=== PATIENT | male | born 1965 | race American Indian/Alaskan Native ===

== ENCOUNTER 2018-10-16 13:59 | Emergency (ER) | payer OTHER ==
[2018-10-16] MEDS ORDERED: Sodium Chloride 0.9% 1,000 ML IV ONE ×2 (14:14→15:41)
[2018-10-16] MEDS ORDERED: Ondansetron 4 MG/2 ML SDV IVPUSH ONE (14:14)
--- NOTE | 2018-10-16 14:16 | EDM.PDOC ---
ED HPI GENERAL MEDICAL PROBLEM - General Chief Complaint: Neuro Symptoms/Deficits Stated Complaint: VOMITING NO FEELING IN RT ARM Time Seen by Provider: 10/16/18 14:15 Source of Information: Reports: Patient - History of Present Illness INITIAL COMMENTS - FREE TEXT/NARRATIVE: HISTORY AND PHYSICAL: History of present illness: Patient presents with abdominal pain 4 out of 10 diffuse pain and vomiting since 3 AM to numerous to count vomiting no fever chills sweats no chest pain shortness breath headache dizziness palpitation no bowel or urine symptoms Patient has been having carpal tunnel symptoms on the right over the last 5-6 months is a secondary complaint [] Review of systems: As per history of present illness and below otherwise all systems reviewed and negative. Past medical history: As per history of present illness and as reviewed below otherwise noncontributory. Surgical history: As per history of present illness and as reviewed below otherwise noncontributory. Social history: No reported history of drug or alcohol abuse. Family history: As per history of present illness and as reviewed below otherwise noncontributory. Physical exam: HEENT: Atraumatic, normocephalic, pupils reactive, negative for conjunctival pallor or scleral icterus, mucous membranes moist, throat clear, neck supple, nontender, trachea midline. Lungs: Clear to auscultation, breath sounds equal bilaterally, chest nontender. Heart: S1S2, regular, negative for clicks, rubs, or JVD. Abdomen: Soft, nondistended, nontender. Negative for masses or hepatosplenomegaly. Negative for costovertebral tenderness. Pelvis: Stable nontender. Genitourinary: Deferred. Rectal: Deferred. Extremities: Atraumatic, negative for cords or calf pain. Neurovascular unremarkable. Neuro: Awake, alert, oriented. Cranial nerves II through XII unremarkable. Cerebellum unremarkable. Motor and sensory unremarkable throughout. Exam nonfocal. Diagnostics: [CBC CMP UA troponin lipase KG ] Therapeutics: [Liter normal saline bolus Zofran Vasotec 1.25 mg IV Proton X 80 mg IV Labetalol 10 mg IV Splint right wrist Zofran No. 30 no refill Lisinopril 20 mg by mouth daily #30 no refill ] Impression: Gastroenteritis Technique no stomach wall-endoscopy suggested/recommended HTN-uncontrolled/medication noncompliant Carpal tunnel syndrome symptoms on the urinate Definitive disposition and diagnosis as appropriate pending reevaluation and review of above. - Related Data Allergies Allergy/AdvReac Type Severity Reaction Status Date / Time aspirin Allergy Cannot Verified 10/16/18 14:12 Remember Home Meds: Home Meds . [No Known Home Meds] 10/16/18 [History] ED ROS GENERAL - Review of Systems Review Of Systems: See Below ED EXAM, GENERAL - Physical Exam Exam: See Below Course - Vital Signs Last Recorded V/S: Last Vital Signs Temp 97.9 F 10/16/18 14:07 Pulse 75 10/16/18 16:26 Resp 18 10/16/18 16:26 BP 181/109 H 10/16/18 16:26 Pulse Ox 97 10/16/18 16:26 - Orders/Labs/Meds Orders: Active Orders 24 hr Category Date Time Status EKG Documentation Completion [RC] STAT Care 10/16/18 14:15 Active UA RFX EZEKIEL AND CULT IF INDIC [URIN] Stat Lab 10/16/18 14:14 Ordered Sodium Chloride 0.9% [Normal Saline] 1,000 ml Med 10/16/18 15:41 Active IV STAT Medication Orders Sodium Chloride (Normal Saline) 1,000 mls @ 999 mls/hr IV STAT ONE Stop: 10/16/18 16:41 Last Admin: 10/16/18 15:44 Dose: 999 mls/hr Labs: Laboratory Tests 10/16/18 10/16/18 10/16/18 Range/Units 14:00 14:00 14:00 WBC 12.50 H (4.0-11.0) K/uL RBC 4.97 (4.50-5.90) M/uL Hgb 16.3 (13.0-17.0) g/dL Hct 46.5 (38.0-50.0) % MCV 93.6 (80.0-98.0) fL MCH 32.8 H (27.0-32.0) pg MCHC 35.1 (31.0-37.0) g/dL RDW Std Deviation 45.3 (28.0-62.0) fl RDW Coeff of Jovita 13 (11.0-15.0) % Plt Count 546 H (150-400) K/uL MPV 8.90 (7.40-12.00) fL Neut % (Auto) 83.8 H (48.0-80.0) % Lymph % (Auto) 11.5 L (16.0-40.0) % [place] % (Auto) 4.6 (0.0-15.0) % Eos % (Auto) 0.0 (0.0-7.0) % Baso % (Auto) 0.1 (0.0-1.5) % Neut # (Auto) 10.5 H (1.4-5.7) K/uL Lymph # (Auto) 1.4 (0.6-2.4) K/uL [place] # (Auto) 0.6 (0.0-0.8) K/uL Eos # (Auto) 0.0 (0.0-0.7) K/uL Baso # (Auto) 0.0 (0.0-0.1) K/uL Nucleated RBC % 0.0 /100WBC Nucleated RBCs # 0 K/uL Sodium 135 L (136-148) mmol/L Potassium 3.5 (3.5-5.1) mmol/L Chloride 99 (98-107) mmol/L Carbon Dioxide 26.5 (21.0-32.0) mmol/L BUN 10 (7.0-18.0) mg/dL Creatinine 0.9 (0.8-1.3) mg/dL Est Cr Clr Drug Dosing 106.58 mL/min Estimated GFR (MDRD) > 60.0 ml/min Glucose 140 H (74-106) mg/dL Calcium 9.7 (8.5-10.1) mg/dL Total Bilirubin 0.6 (0.2-1.0) mg/dL AST 20 (15-37) IU/L ALT 31 (14-63) IU/L Alkaline Phosphatase 111 (46-116) U/L Troponin I < 0.050 (0.000-0.056) ng/mL Total Protein 8.6 H (6.4-8.2) g/dL Albumin 4.4 (3.4-5.0) g/dL Globulin 4.2 H (2.6-4.0) g/dL Albumin/Globulin Ratio 1.1 (0.9-1.6) Lipase 149 (73-393) U/L Meds: Medications Generic Name Dose Route Start Last Admin Trade Name Freq PRN Reason Stop Dose Admin Sodium Chloride 1,000 mls @ 999 mls/hr 10/16/18 15:41 10/16/18 15:44 Normal Saline IV 10/16/18 16:41 999 mls/hr STAT ONE Administration Discontinued Medications Generic Name Dose Route Start Last Admin Trade Name Freq PRN Reason Stop Dose Admin Amlodipine Besylate 5 mg 10/16/18 16:34 Norvasc PO 10/16/18 16:35 ONETIME ONE Enalaprilat 1.25 mg 10/16/18 15:07 10/16/18 15:40 Vasotec Iv IVPUSH 10/16/18 15:08 Not Given ONETIME ONE Enalaprilat 1.25 mg 10/16/18 15:35 10/16/18 15:35 Vasotec Iv IVPUSH 10/16/18 15:36 Not Given ONETIME ONE Enalaprilat 1.25 mg 10/16/18 15:36 10/16/18 15:37 Vasotec Iv IVPUSH 10/16/18 15:37 Not Given ONETIME ONE Enalaprilat 1.25 mg 10/16/18 15:37 10/16/18 15:39 Vasotec Iv IVPUSH 10/16/18 15:38 1.25 mg ONETIME ONE Administration Sodium Chloride 1,000 mls @ 999 mls/hr 10/16/18 14:14 10/16/18 14:24 Normal Saline IV 10/16/18 15:14 999 mls/hr STAT ONE Administration Iopamidol 100 ml 10/16/18 15:32 10/16/18 15:33 Isovue Multipack-370 (76%) IVPUSH 10/16/18 15:33 100 ml ONETIME STA Administration Labetalol HCl 10 mg 10/16/18 16:13 10/16/18 16:24 Normodyne IVPUSH 10/16/18 16:14 10 mg NOW ONE Administration Protocol Ondansetron HCl 8 mg 10/16/18 14:14 10/16/18 14:24 Zofran IVPUSH 10/16/18 14:15 8 mg ONETIME ONE Administration Pantoprazole Sodium 80 mg 10/16/18 15:00 10/16/18 15:43 Protonix Iv IVPUSH 02/24/19 15:01 80 mg .BOLUS ONE Administration Departure - Departure Time of Disposition: 16:36 Disposition: Home, Self-Care 01 Condition: Good Clinical Impression: Gastroenteritis, HTN (hypertension), Carpal tunnel syndrome of right wrist - Discharge Information Referrals: Cabrera Moran [Primary Care Provider] - Forms: ED Department Discharge Additional Instructions: Medication as prescribed Return if symptoms persist or worsen or new concerning symptoms develop Clear liquid diet 12-24 hours advance diet slowly as tolerated All up with primary care concerning hypertension and carpal tunnel syndrome Follow-up with general surgery concerning thickening of your stomach wall may further be evaluated with upper endoscopy All phone numbers below to schedule appropriate follow-up [facility] - Primary Care [address] [place] [id number] [facility] - General Surgery [facility] [address] [place] [address], [address] [place] [address] The following information is given to patients seen in the emergency department who are being discharged to home. This information is to outline your options for follow-up care. We provide all patients seen in our emergency department with a follow-up referral. The need for follow-up, as well as the timing and circumstances, are variable depending upon the specifics of your emergency department visit. If you don't have a primary care physician on staff, we will provide you with a referral. We always advise you to contact your personal physician following an emergency department visit to inform them of the circumstance of the visit and for follow-up with them and/or the need for any referrals to a consulting specialist. The emergency department will also refer you to a specialist when appropriate. This referral assures that you have the opportunity for follow-up care with a specialist. All of these measure are taken in an effort to provide you with optimal care, which includes your follow-up. Under all circumstances we always encourage you to contact your private physician who remains a resource for coordinating your care. When calling for follow-up care, please make the office aware that this follow-up is from your recent emergency room visit. If for any reason you are refused follow-up, please contact the [facility] emergency department at and asked to speak to the emergency department charge nurse. - My Orders Last 24 Hours: My Active Orders 10/16/18 14:14 UA RFX EZEKIEL AND CULT IF INDIC [URIN] Stat 10/16/18 14:15 EKG Documentation Completion [RC] STAT 10/16/18 15:41 Sodium Chloride 0.9% [Normal Saline] 1,000 ml IV STAT - Assessment/Plan Last 24 Hours: My Active Orders 10/16/18 14:14 UA RFX EZEKIEL AND CULT IF INDIC [URIN] Stat 10/16/18 14:15 EKG Documentation Completion [RC] STAT 10/16/18 15:41 Sodium Chloride 0.9% [Normal Saline] 1,000 ml IV STAT
[2018-10-16 14:48] LABS: CHLORIDE,CL 99 mmol/L (98-107); SODIUM,NA 135 mmol/L (136-148)
--- NOTE | 2018-10-16 14:56 | CT ---
Indication: Pain. Right hand numbness for 4-5 months with nausea and vomiting starting last night. Technique: Multiple contiguous axial images were obtained from the skullbase to the vertex without intravenous contrast enhancement. Please note that all CT scans at this facility use dose modulation, iterative reconstruction, and/or weight-based dosing when appropriate to reduce radiation dose to as low as reasonably achievable. Comparison: None Findings: The ventricles are symmetric and normal in size and morphology. The basal cisterns are widely patent. No intra-axial or extra-axial hemorrhage is identified. No mass, mass effect or midline shift is seen. The bony calvarium is intact. The visualized paranasal sinuses and mastoid air cells are clear. Impression: No acute intracranial process. Consideration should be given to non emergent MRI of the brain given the patient`s clinical symptoms. Please note that all CT scans at this facility use dose modulation, iterative reconstruction, and/or weight-based dosing when appropriate to reduce radiation dose to as low as reasonably achievable. Dictated by Analia Colon MD @ Oct 16 2018 2:53PM Signed by Dr. Analia Colon @ Oct 16 2018 2:55PM
[2018-10-16] MEDS ORDERED: Pantoprazole 40 MG Vial IVPUSH ONE (15:00)
[2018-10-16] MEDS ORDERED: Enalaprilat 1.25 MG/ML SDV IVPUSH ONE ×4 (15:07→15:37)
[2018-10-16] MEDS ORDERED: Iopamidol 755 MG/ML 500 ML Multipack Bottle IVPUSH STA (15:32)
--- NOTE | 2018-10-16 16:00 | CT ---
INDICATION: Abdominal pain with nausea and vomiting. TECHNIQUE: CT of the abdomen and pelvis performed after IV injection of 100 mL of Isovue-370. FINDINGS: Moderate sized lipoma left lower lateral abdominal wall musculature. Moderate diffuse fatty infiltration of liver. Cholelithiasis. Small sclerotic lesion left proximal femur likely benign. Tiny nodule in the right lower lobe posterior medially. Moderate wall thickening involving the mid to distal stomach. This portion of the stomach is not well distended however I cannot account for all of the wall prominence due to incomplete distention. If there is concern for gastric mucosal disease this could be further investigated. Mild nodularity and thickening of both adrenal glands likely related to hyperplasia. Small lymph nodes in the right retrocrural region and abdominal retroperitoneum are not enlarged by CT criteria. No evidence for bowel obstruction. The appendix is normal. Clusters of small to slightly prominent right mid and lower abdominal mesenteric lymph nodes likely reactive. Remainder negative. IMPRESSION: 1. Moderate wall prominence involving the mid to distal stomach cannot be attributed solely to incomplete distention. Gastritis or other inflammatory disease cannot be distinguished from other mucosal abnormality. Consider further investigation of the stomach with endoscopy or upper GI exam. 2. Cholelithiasis. 3. Tiny nodule right lower lobe likely benign. 4. Mild lymph node prominence in the right abdominal mesentery should be reactive in nature. Other findings as above. Please note that all CT scans at this facility use dose modulation, iterative reconstruction, and/or weight-based dosing when appropriate to reduce radiation dose to as low as reasonably achievable. Dictated by Rashad Chang MD @ Oct 16 2018 3:57PM Signed by Dr. Rashad Chang @ Oct 16 2018 3:57PM
[2018-10-16] MEDS ORDERED: Labetalol 20 MG/4 ML Syringe IVPUSH ONE (16:13)
[2018-10-16] MEDS ORDERED: amLODIPine 5 MG Tab PO ONE (16:34)
[2018-10-16] MEDS ORDERED: Lisinopril 10 MG Tab PO ONE (16:39)
== END 2018-10-16 16:57 | disposition home or self-care (01) ==
LOC: MW.ED 13:59
DX: K52.9 Noninfective gastroenteritis and colitis, unspecified (principal); G56.01 Carpal tunnel syndrome, right upper limb; I10 Essential (primary) hypertension; Z88.6 Allergy status to analgesic agent
CPT/HCPCS: 36415; 70450; 74177; 80053; 83690; 84484; 85025; 93005; 96361; 96374; 96375; 99284; A9270; C9113; J2405; J3490; J7040; Q9967

== ENCOUNTER 2018-10-30 15:41 | Emergency (ER) | payer OTHER ==
--- NOTE | 2018-10-30 15:44 | EDM.PDOC ---
ED HPI GENERAL MEDICAL PROBLEM - General Stated Complaint: SPOKE TO NURSE Time Seen by Provider: 10/30/18 15:43 Source of Information: Reports: Patient History Limitations: Reports: No Limitations - History of Present Illness INITIAL COMMENTS - FREE TEXT/NARRATIVE: HISTORY AND PHYSICAL: History of present illness: Patient is a 53-year-old male who presents to the emergency room with complaints of nausea, vomiting, diarrhea. States he symptoms started this morning and he was using some prescribed Zofran which did not help his symptoms. He has had subjective fever, chills and obvious diaphoresis. He denies any chest pain, shortness of breath or cough. Does have mild pain to the mid abdomen, diffuse. Denies any blood in his stools or dysuria. Prior to this morning he had been eating and drinking appropriately and had no concerns. Review of systems: As per history of present illness and below otherwise all systems reviewed and negative. Past medical history: As per history of present illness and as reviewed below otherwise noncontributory. Surgical history: As per history of present illness and as reviewed below otherwise noncontributory. Social history: See social history for further information Family history: As per history of present illness and as reviewed below otherwise noncontributory. Physical exam: General: Well-developed and well-nourished 53-year-old male. Alert and oriented. Nontoxic appearing and in no acute distress HEENT: Atraumatic, normocephalic, pupils equal and reactive bilaterally, negative for conjunctival pallor or scleral icterus, mucous membranes moist, TMs normal bilaterally, throat clear, neck supple, nontender, trachea midline. No drooling or trismus noted. No meningeal signs. No hot potato voice noted. Lungs: Clear to auscultation, breath sounds equal bilaterally, chest nontender. Heart: S1S2, regular rate and rhythm without overt murmur Abdomen: Soft, nondistended, mild tenderness to the mid abdomen-nonspecific. Negative for masses or hepatosplenomegaly. Negative for costovertebral tenderness. Pelvis: Stable nontender. Genitourinary: Deferred. Rectal: Deferred. Skin: Patient's hair is damp from sweating. Otherwise intact and cool to touch. No lesions or rashes noted. Extremities: Atraumatic, negative for cords or calf pain. Neurovascular unremarkable. Neuro: Awake, alert, oriented. Cranial nerves II through XII unremarkable. Cerebellum unremarkable. Motor and sensory unremarkable throughout. Exam nonfocal. Notes: Patient was evaluated in the emergency room on 10/16/18. At that time he was diagnosed with gastroenteritis, uncontrolled hypertension as he was noncompliant with medication and received a refill on lisinopril 20 mg once daily. EKG shows a normal sinus rhythm with a rate of 64. Patient does have a slight leukocytosis. Waiting on the CT imaging at this time. Vital signs remain stable CT of the abdomen and pelvis shows no acute abnormalities. No inflammatory changes. Normal gas pattern. Normal appendix. The following are stable since prior study (10/16/2018): Cholelithiasis, adrenal hyperplasia, retrocrural lymph node, mesenteric lymph nodes, left abdominal wall lipoma. CT results were shared with the patient. Patient is adamant that his symptoms are related to his gallbladder. He states he has known about this for several months but "no one called me to set up an appointment for follow up". Did encourage him to contact the general surgeon himself to schedule follow-up care with them. Patient blood pressure has been elevated while being here in the emergency room. He refuses any form of medication or further treatment of his hypertension. He states that he has medications at home but has not been able to keep these down to the previous vomiting. I did request that we help get his blood pressure down before discharge and he declines. He is requesting to be discharged to home. Patient has not had a loose stool since being here, supplies to obtain a stool sample were given to the patient. Education was provided. Prescription for outpatient stool studies was given to the patient with education and the need for appropriate follow-up. Supportive care measures were reviewed and discussed. Voices understanding and is agreeable to plan of care. Denies any further questions or concerns at this time. Diagnostics: CBC, CMP, UA, Lipase, CT abd/pelvis, EKG Therapeutics: IV fluids, Zofran Prescription: None Impression: Gastroenteritis Cholelithiasis Plan: 1. Clear liquids over the next 24 hours and advance your diet as tolerated. Start with a bland diet and increase as tolerated. 2. Take your Zofran at home as directed. 3. We have given you supplies to obtain a stool study at home. If he continued to have diarrhea please bring the sample in as he had been directed. 4. Follow-up with her primary care provider as we discussed. Return to the ED as needed and as discussed. Definitive disposition and diagnosis as appropriate pending reevaluation and review of above. Right Abdomen Pain Score (Numeric/FACES): 6 - Related Data Allergies Allergy/AdvReac Type Severity Reaction Status Date / Time aspirin Allergy Cannot Verified 10/30/18 15:50 Remember Home Meds: Home Meds Lisinopril 10 mg PO DAILY 10/30/18 [History] Past Medical History Cardiovascular History: Reports: Hypertension Respiratory History: Reports: None Gastrointestinal History: Reports: None Genitourinary History: Reports: None Musculoskeletal History: Reports: None Neurological History: Reports: None Psychiatric History: Reports: None Endocrine/Metabolic History: Reports: None Hematologic History: Reports: None Immunologic History: Reports: None Oncologic (Cancer) History: Reports: None Dermatologic History: Reports: None - Infectious Disease History Infectious Disease History: Reports: None - Past Surgical History Head Surgeries/Procedures: Reports: None Cardiovascular Surgical History: Reports: None GI Surgical History: Reports: None Musculoskeletal Surgical History: Reports: None Dermatological Surgical History: Reports: None Social & Family History - Family History Family Medical History: Noncontributory - Caffeine Use Caffeine Use: Reports: Coffee, Soda ED ROS GENERAL - Review of Systems Review Of Systems: ROS reveals no pertinent complaints other than HPI. ED EXAM, GENERAL - Physical Exam Exam: See Below (See dictation) Course - Vital Signs Last Recorded V/S: Last Vital Signs Temp 97.7 F 10/30/18 17:20 Pulse 94 10/30/18 17:20 Resp 14 10/30/18 17:20 BP 173/110 H 10/30/18 17:20 Pulse Ox 97 10/30/18 17:20 - Orders/Labs/Meds Orders: Active Orders 24 hr Category Date Time Status EKG Documentation Completion [RC] STAT Care 10/30/18 15:50 Active CULTURE STOOL + CAMPY+SHIGATOX [RM] Stat Lab 10/30/18 16:20 Ordered UA RFX EZEKIEL AND CULT IF INDIC [URIN] Stat Lab 10/30/18 15:50 Ordered Labs: Laboratory Tests 10/30/18 10/30/18 Range/Units 16:05 16:05 WBC 13.28 H (4.0-11.0) K/uL RBC 4.59 (4.50-5.90) M/uL Hgb 15.0 (13.0-17.0) g/dL Hct 43.3 (38.0-50.0) % MCV 94.3 (80.0-98.0) fL MCH 32.7 H (27.0-32.0) pg MCHC 34.6 (31.0-37.0) g/dL RDW Std Deviation 46.5 (28.0-62.0) fl RDW Coeff of Jovita 14 (11.0-15.0) % Plt Count 459 H (150-400) K/uL MPV 8.50 (7.40-12.00) fL Neut % (Auto) 90.2 H (48.0-80.0) % Lymph % (Auto) 7.0 L (16.0-40.0) % [place] % (Auto) 2.6 (0.0-15.0) % Eos % (Auto) 0.0 (0.0-7.0) % Baso % (Auto) 0.2 (0.0-1.5) % Neut # (Auto) 12.0 H (1.4-5.7) K/uL Lymph # (Auto) 0.9 (0.6-2.4) K/uL [place] # (Auto) 0.4 (0.0-0.8) K/uL Eos # (Auto) 0.0 (0.0-0.7) K/uL Baso # (Auto) 0.0 (0.0-0.1) K/uL Nucleated RBC % 0.0 /100WBC Nucleated RBCs # 0 K/uL Sodium 138 (136-148) mmol/L Potassium 4.1 (3.5-5.1) mmol/L Chloride 103 (98-107) mmol/L Carbon Dioxide 25.7 (21.0-32.0) mmol/L BUN 10 (7.0-18.0) mg/dL Creatinine 0.8 (0.8-1.3) mg/dL Est Cr Clr Drug Dosing 119.90 mL/min Estimated GFR (MDRD) > 60.0 ml/min Glucose 129 H (74-106) mg/dL Calcium 9.0 (8.5-10.1) mg/dL Total Bilirubin 0.6 (0.2-1.0) mg/dL AST 18 (15-37) IU/L ALT 33 (14-63) IU/L Alkaline Phosphatase 88 (46-116) U/L Total Protein 7.6 (6.4-8.2) g/dL Albumin 4.0 (3.4-5.0) g/dL Globulin 3.6 (2.6-4.0) g/dL Albumin/Globulin Ratio 1.1 (0.9-1.6) Lipase 106 (73-393) U/L Meds: Medications Discontinued Medications Generic Name Dose Route Start Last Admin Trade Name Freq PRN Reason Stop Dose Admin Sodium Chloride 1,000 mls @ 999 mls/hr 10/30/18 15:50 10/30/18 16:00 Normal Saline IV 10/30/18 16:50 999 mls/hr STAT ONE Administration Iopamidol 100 ml 10/30/18 17:22 10/30/18 17:22 Isovue Multipack-370 (76%) IVPUSH 10/30/18 17:23 100 ml ONETIME STA Administration Ondansetron HCl 4 mg 10/30/18 15:50 10/30/18 16:00 Zofran IVPUSH 10/30/18 15:51 4 mg ONETIME ONE Administration Departure - Departure Time of Disposition: 17:42 Disposition: Home, Self-Care 01 Clinical Impression: Gastroenteritis Cholelithiasis Qualifiers: Cholelithiasis location: gallbladder Cholecystitis presence: without cholecystitis Biliary obstruction: without biliary obstruction Qualified Code(s) : K80.20 - Calculus of gallbladder without cholecystitis without obstruction - Discharge Information Instructions: Viral Gastroenteritis, Adult, [id number], Cholelithiasis Referrals: PCP,Unknown [Primary Care Provider] - Additional Instructions: The following information is given to patients seen in the emergency department who are being discharged to home. This information is to outline your options for follow-up care. We provide all patients seen in our emergency department with a follow-up referral. The need for follow-up, as well as the timing and circumstances, are variable depending upon the specifics of your emergency department visit. If you don't have a primary care physician on staff, we will provide you with a referral. We always advise you to contact your personal physician following an emergency department visit to inform them of the circumstance of the visit and for follow-up with them and/or the need for any referrals to a consulting specialist. The emergency department will also refer you to a specialist when appropriate. This referral assures that you have the opportunity for follow-up care with a specialist. All of these measure are taken in an effort to provide you with optimal care, which includes your follow-up. Under all circumstances we always encourage you to contact your private physician who remains a resource for coordinating your care. When calling for follow-up care, please make the office aware that this follow-up is from your recent emergency room visit. If for any reason you are refused follow-up, please contact the [facility] Emergency Department at and asked to speak to the emergency department charge nurse. [facility] Primary Care [address] [place] [id number] [place] [address] 1. Clear liquids over the next 24 hours and advance her diet as tolerated. Start with a bland diet and increase as tolerated. 2. Take your Zofran at home as directed. 3. We have given you supplies to obtain a stool study at home. If he continued to have diarrhea please bring the sample in as he had been directed. 4. Follow-up with her primary care provider as we discussed. Return to the ED as needed and as discussed. - My Orders Last 24 Hours: My Active Orders 10/30/18 15:50 EKG Documentation Completion [RC] STAT UA RFX EZEKIEL AND CULT IF INDIC [URIN] Stat 10/30/18 16:20 CULTURE STOOL + CAMPY+SHIGATOX [RM] Stat - Assessment/Plan Last 24 Hours: My Active Orders 10/30/18 15:50 EKG Documentation Completion [RC] STAT UA RFX EZEKIEL AND CULT IF INDIC [URIN] Stat 10/30/18 16:20 CULTURE STOOL + CAMPY+SHIGATOX [RM] Stat
[2018-10-30] MEDS ORDERED: Ondansetron 4 MG/2 ML SDV IVPUSH ONE (15:50)
[2018-10-30] MEDS ORDERED: Sodium Chloride 0.9% 1,000 ML IV ONE (15:50)
[2018-10-30 16:31] LABS: CHLORIDE,CL 103 mmol/L (98-107); SODIUM,NA 138 mmol/L (136-148)
[2018-10-30] MEDS ORDERED: Iopamidol 755 MG/ML 500 ML Multipack Bottle IVPUSH STA (17:22)
--- NOTE | 2018-10-30 17:35 | CT ---
INDICATION: Umbilical pain. Right lower quadrant abdominal pain. TECHNIQUE: Volumetric CT acquisition of the abdomen and pelvis following the administration of 100 mL Isovue-370 intravenous contrast. Thin section and multiplanar reconstruction. COMPARISON: CT abdomen and pelvis 10/16/2018. FINDINGS: The lung bases are clear. The liver and spleen are normal in size and without focal abnormality. No dilatation of the biliary system. Stones in the lumen of the gallbladder are unchanged. Gallbladder wall thickness is normal. The pancreas is normal. Bulky appearance of the adrenal gland stable since prior study and most consistent with adrenal hyperplasia. No focal adrenal mass. Kidneys normal in size, shape, and position. Both kidneys are functioning. No hydronephrosis. No renal masses or focal parenchymal abnormalities. Ureters normal in course and caliber. Abdominal aorta normal in caliber and displays changes of atherosclerosis. Retro crural lymph node normal by size criteria and stable since prior study. Cluster of mesenteric lymph nodes in the right lower quadrant unchanged since prior study and normal by size criteria. Normal bowel gas pattern. No inflammatory changes involving the bowel. Normal appendix. The urinary bladder has a smooth contour. The fat planes surrounding the bladder, rectum, and prostate are maintained. No free fluid in the abdomen and pelvis. 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 Lumbar spondylosis. IMPRESSION: 1. No acute abnormality in the abdomen and pelvis. 2. The following are stable since prior study: Cholelithiasis, adrenal hyperplasia, retrocrural lymph node, mesenteric lymph nodes, left abdominal wall lipoma. Please note that all CT scans at this facility use dose modulation, iterative reconstruction, and/or weight-based dosing when appropriate to reduce radiation dose to as low as reasonably achievable. Dictated by Nida Graf MD @ Oct 30 2018 5:19PM Signed by Dr. Nida Graf @ Oct 30 2018 5:33PM
== END 2018-10-30 17:57 | disposition home or self-care (01) ==
LOC: MW.ED 15:41
DX: K52.9 Noninfective gastroenteritis and colitis, unspecified (principal); K80.20 Calculus of gallbladder without cholecystitis without obstruction; I10 Essential (primary) hypertension; Z88.8 Allergy status to other drugs, medicaments and biological substances
CPT/HCPCS: 36415; 74177; 80053; 83690; 85025; 93005; 96361; 96374; 99284; J2405; J7040; Q9967